=== PATIENT | male | born 1960 | race Caucasian/White ===

== ENCOUNTER 2021-02-01 09:09 | Outpatient (CLI) | payer OTHER, SELFPAY ==
--- NOTE | ~2021-02-01 | US_ITS ---
EXAMINATION: US right upper quadrant DATE: 02/01/2021 09:50 INDICATION: Abnormal levels of other serum enzymes. TECHNIQUE: Multiple grayscale and Doppler ultrasound images of the abdomen were obtained. COMPARISON: Ultrasound 09/11/2012 FINDINGS: The visualized portions of the head and body of the pancreas are normal. The liver is mathew l without focal lesion. No liver surface nodularity. There is normal flow in main portal vein. The ga llbladder is normal in size. No gallstones. Gallbladder wall thickening is noted. The common duct is normal and measures 3 mm. IMPRESSION: 1. Gallbladder wall thickening, which may be seen with interstitial edema, chronic liver disease, or chronic cholecystitis. Reviewed, dictated and finalized at location B. IMPRESSION: 1. Gallbladder wall thickening, which may be seen with interstitial edema, chronic manager savanna liver disease, or chronic cholecystitis.
== END 2021-02-01 09:10 | disposition home or self-care (01) ==
PROVIDERS: PCP Family Medicine; Visit Provider Physician Assistant
DX: R74.8 Abnormal levels of other serum enzymes (principal)
CPT/HCPCS: 76705

== ENCOUNTER 2022-12-20 00:51 | Day surgery (SDC) | payer OTHER, SELFPAY ==
[2022-12-07 14:41] VITALS: BMI 31.7
[2022-12-20 09:38] VITALS: BP 141/83; PULSE 72; RESP 18; TEMP 36.1; O2SAT 99
[2022-12-20] MEDS: LACTATED RINGERS 1,000 ML 150 ML IV CONT (09:40)
[2022-12-20 09:49] LABS: Glucose Point of Care 92 mg/dl (65-105)
--- NOTE | 2022-12-20 10:03 | PM.HPGS ---
History of Present Illness History of Present Illness Consent: Risks, benefits, and alternatives have been discussed and questions answered. Patient agrees to proceed with procedure. Chief complaint: hx colon polyps Narrative: Taqueria Flynn is a 62 year old male presents for screening colonoscopy. Patient's current weight appetite and bowel movements are normal. Patient denies abdominal pain. He has had no bleeding. He does have a prior history of colon polyp removed in 2018. Family history is significant that his father had colon cancer. Review of Systems Review of Systems: Review of systems noncontributory. [facility] Family History Family History Father Malignant neoplasm of prostate Mother Family history of diabetes mellitus in first degree relative Family history of malignant neoplasm of uterus Social History Social History Smoking status: Former smoker Tobacco type: cigars Second hand tobacco smoke exposure: No Smoking end date: 10/14/82 Alcohol intake: current Drinks per week: 2 Substance use: never Substance use type: does not use Living arrangements: with family Occupation/Education: occupation Gender identity (if verbalized by the patient): Male Sexual Orientation (if Verbalized by the Patient): Straight or Heterosexual Spiritual care concerns: No Meds Home Medications and Allergies Home Medications Medication Instructions Recorded Confirmed Type blood sugar diagnostic (OneTouch #100 ea 09/15/20 12/20/22 Rx Ultra Blue Test Strip) empagliflozin 25 mg tablet See Rx Instructions .Route 05/28/22 12/20/22 Rx (Jardiance) .COMPLEX #90 tabs lisinopril 10 See Rx Instructions .Route 06/11/22 12/20/22 Rx mg-hydrochlorothiazide 12.5 mg .COMPLEX #90 tabs tablet sodium,potassium,mag sulfates 17.5 See Rx Instructions PO .COMPLEX 12/03/22 12/20/22 Rx gram-3.13 gram-1.6 gram oral soln #354 mL (Suprep Bowel Prep Kit) metformin 500 mg tablet,extended See Rx Instructions .Route 12/07/22 12/20/22 Rx release 24 hr .COMPLEX #360 tabs rosuvastatin 20 mg tablet See Rx Instructions .Route 12/07/22 12/20/22 Rx .COMPLEX #90 tabs Allergies Allergy/AdvReac Type Severity Reaction Status Date / Time No Known Drug Allergies Allergy Verified 12/20/22 08:18 Vital Signs Vital Signs - 24 hr 12/20/22 09:38 Temperature 97.0 F L Pulse Rate 72 Respiratory Rate 18 Blood Pressure 141/83 H Pulse Oximetry 99 Oxygen Delivery Room Air Exam Narrative: Physical exam reveals patient be alert. Vital signs stable. HEENT exam is unremarkable. Patient is anicteric. Lungs are clear to the auscultation and percussion. Heart is without murmur or extra sounds. Abdomen bowel sounds present soft nontender with no organomegaly. Digital external rectal exam is normal. Assessment and Plan Assessment and plan (1) History of colon polyps: Code(s): Z86.010 - Personal history of colonic polyps Status: Acute Assessment and Plan: Patient has a prior history of colon polyps most recently 2017. Plan for surveillance colonoscopy at 5 year intervals. Further recommendations may be given after endoscopy. (2) Family history of colon cancer in father: Code(s): Z80.0 - Family history of malignant neoplasm of digestive organs Status: Acute Assessment and Plan: patient's father has had colon cancer. Plan for surveillance colonoscopy at 5 year intervals.
--- NOTE | 2022-12-20 10:50 | WPDANESEPPF ---
Anes - Initial Pre Proc Eval Procedure: Operation Date: 12/20/22 11:00 Proposed Procedures p Screening Colonoscopy - Renaldo Israel MD Date/Time: 12/20/22 10:50 Surgeon: Renaldo Israel MD Pre Op Diagnosis: hx colon polyps Patient Data Age: 62 Gender: M Height: 1.75 m Weight: 92.6 kg Last Vital Signs Temp 97.0 F L 12/20/22 09:38 Pulse 72 12/20/22 09:38 Resp 18 12/20/22 09:38 BP 141/83 H 12/20/22 09:38 Pulse Ox 99 12/20/22 09:38 O2 Del Method Room Air 12/20/22 09:38 Allergies Allergy/AdvReac Type Severity Reaction Status Date / Time No Known Drug Allergies Allergy Verified 12/20/22 08:18 Home Medications Medication Instructions Recorded Confirmed Type blood sugar diagnostic (OneTouch #100 ea 09/15/20 12/20/22 Rx Ultra Blue Test Strip) empagliflozin 25 mg tablet See Rx Instructions .Route 05/28/22 12/20/22 Rx (Jardiance) .COMPLEX #90 tabs lisinopril 10 See Rx Instructions .Route 06/11/22 12/20/22 Rx mg-hydrochlorothiazide 12.5 mg .COMPLEX #90 tabs tablet sodium,potassium,mag sulfates 17.5 See Rx Instructions PO .COMPLEX 12/03/22 12/20/22 Rx gram-3.13 gram-1.6 gram oral soln #354 mL (Suprep Bowel Prep Kit) metformin 500 mg tablet,extended See Rx Instructions .Route 12/07/22 12/20/22 Rx release 24 hr .COMPLEX #360 tabs rosuvastatin 20 mg tablet See Rx Instructions .Route 12/07/22 12/20/22 Rx .COMPLEX #90 tabs Laboratory Tests 12/20/22 09:47 POC Capillary Glucose 92 mg/dl mg/dl (65-105) Patient hx anesthesia problems: none Family hx anesthesia problems: none Results Review: All pre-operative results and documents have been reviewed as part of the pre-operative evaluation. [facility] Family History Family History Father Malignant neoplasm of prostate Mother Family history of diabetes mellitus in first degree relative Family history of malignant neoplasm of uterus Social History Social History Smoking status: Former smoker Tobacco type: cigars Second hand tobacco smoke exposure: No Smoking end date: 10/14/82 Alcohol intake: current Drinks per week: 2 Substance use: never Substance use type: does not use Living arrangements: with family Occupation/Education: occupation Gender identity (if verbalized by the patient): Male Sexual Orientation (if Verbalized by the Patient): Straight or Heterosexual Spiritual care concerns: No Anes - Eval Final PreProcedure Day of Procedure 12/20/22 10:50 Patient weight: obese Heart: regular rate and rhythm Lungs: clear to auscultation Airway: Mallampati scale class II Neurological: alert and oriented Last oral intake: >/= 8 hours ASA classification: III Emergent: no Anesthetic plan: proceed Anesthesia type and monitoring: general GIVS and standard monitoring Results Review: All pre-operative results and documents have been reviewed as part of the pre-operative evaluation. Informed Consent: The patient's anesthetic plan and its attendant risks and benefits were discussed with the patient/family/POA. Questions were solicited and answers provided to the satisfaction of the patient/family/POA.
[2022-12-20] MEDS: SIMETHICONE ORAL SUSPENSION 20 MG/0.3 ML 30 ML BOTTLE 0.6 ML IRRIGATION (11:04)
[2022-12-20 11:14] VITALS: BP 122/75; PULSE 72; RESP 20; O2SAT 97
[2022-12-20 11:24] VITALS: BP 114/77; PULSE 68; RESP 20; O2SAT 98
[2022-12-20 11:34] VITALS: BP 137/84; PULSE 66; RESP 20; O2SAT 100
== END 2022-12-20 11:38 | disposition home or self-care (01) ==
PROVIDERS: PCP Family Medicine; Visit Provider Internal Medicine Gastroenterology
PROC: 0DJD8ZZ Inspection of Lower Intestinal Tract, Via Natural or Artificial Opening Endoscopic (ICD-10-PCS; CPT 45378; principal; 2022-12-20 11:00)
DX: Z12.11 Encounter for screening for malignant neoplasm of colon (principal); D12.2 Benign neoplasm of ascending colon; D12.5 Benign neoplasm of sigmoid colon; K64.8 Other hemorrhoids; Z80.0 Family history of malignant neoplasm of digestive organs; Z79.84 Long term (current) use of oral hypoglycemic drugs; Z87.891 Personal history of nicotine dependence; E66.9 Obesity, unspecified; Z68.30 Body mass index [BMI] 30.0-30.9, adult
CPT/HCPCS: 45385; 82948; 88305; J2704; J7120

== ENCOUNTER 2024-05-14 08:03 | Outpatient (RCR) | payer OTHER, SELFPAY ==
[2024-05-14 08:08] VITALS: BMI 31.1
[2024-05-14 08:42] VITALS: BMI 31.1
== END 2024-08-03 10:30 | disposition home or self-care (01) ==
LOC: ANHDMC 08:03
PROVIDERS: PCP Family Medicine; Visit Provider Physician Assistant
DX: E11.9 Type 2 diabetes mellitus without complications (principal); Z68.30 Body mass index [BMI] 30.0-30.9, adult; Z71.3 Dietary counseling and surveillance
CPT/HCPCS: 97802